=== PATIENT | female | born 1955 | race Caucasian/White ===

== ENCOUNTER → 2024-01-09 13:04 | Outpatient (REF) | payer MEDICARE, OTHER, SELFPAY | LOC: RAD 13:04 | PROVIDERS: ATTENDING PHYSICIAN Nurse Practitioner Family | DX: M85.80 Other specified disorders of bone density and structure, unspecified site (principal); M85.88 Other specified disorders of bone density and structure, other site | CPT/HCPCS: 77080 ==

== ENCOUNTER → 2025-02-08 14:15 | Outpatient (REF) | payer MEDICARE, SELFPAY | LOC: HWRAD 14:15 | PROVIDERS: ATTENDING PHYSICIAN Physician Assistant Medical | DX: Z91.81 History of falling (principal); S09.90XA Unspecified injury of head, initial encounter; S00.83XA Contusion of other part of head, initial encounter | CPT/HCPCS: 70200; 70330; 70450 ==